=== PATIENT | male | born 1935 | race Caucasian/White ===

== ENCOUNTER 2017-10-08 22:04 | Inpatient (IN) | payer MEDICARE ==
[~2017-10-08] VITALS: Ht 180.3 cm; Wt 134.5 kg
[2017-10-08] MEDS ORDERED: DICL75ER PO (22:22)
[2017-10-08] MEDS ORDERED: TAMS.4ER PO (22:22)
[2017-10-08] MEDS ORDERED: ATOR80 PO (22:23)
[2017-10-08] MEDS ORDERED: LEVOCETIRIZINE D5 MG PO (22:23)
[2017-10-08] MEDS ORDERED: LOSA50 PO (22:23)
[2017-10-08 22:37] LABS: BASOPHILS PERCENT AUTO 0 % (0-2); EOSINOPHILS PERCENT AUTO 0 % (0-6); Hematocrit 22.6 % (37.0-53.0); Hemoglobin 7.1 g/dL (13.5-17.5); IMMATURE GRAN ABSOLUTE AUTO 0.06 K/mm3 (0.00-0.10); IMMATURE GRAN PERCENT AUTO 1 % (0-1); LYMPHOCYTES ABSOLUTE AUTO 3.09 K/mm3 (0.84-5.20); LYMPHOCYTES PERCENT AUTO 31 % (21-46); MONOCYTES ABSOLUTE AUTO 0.56 K/mm3 (0.16-1.47); MONOCYTES PERCENT AUTO 6 % (4-13); Mean Corpuscular HGB Conc 31.4 g/dL (31.5-36.5); Mean Corpuscular Volume 105 fL (80-100); Mean Platelet Volume 10.6 fL (9.1-12.4); NEUTROPHILS ABSOLUTE AUTO 6.29 K/mm3 (1.96-9.15); NEUTROPHILS PERCENT AUTO 63 % (41-73); Platelet Count 155 K/mm3 (150-400); RDW Coefficient Variation 13.2 % (11.7-14.2); RDW Standard Deviation 49.9 fL (35.1-46.3); Red Blood Cell Count 2.15 M/mm3 (4.30-5.90)
[2017-10-08 22:45] LABS: Calcium, Ionized (POC) 1.21 mmol/L (1.10-1.46); Chloride (POC) 108 mmol/L (98-108); Creatinine (POC) 1.6 mg/dL (0.8-1.3); Glucose (ISTAT POC) 216 mg/dL (70-99); Hemoglobin (POC) 7.1 g/dL (13.5-17.5); Potassium (POC) 5.5 mmol/L (3.5-5.5); Sodium (POC) 140 mmol/L (135-148); Total CO2 (POC) 22 mmol/L (21-32)
[2017-10-08 22:51] LABS: Albumin, Blood 2.5 g/dL (3.4-5.0); Albumin/Globulin Ratio 0.9 (0.8-1.8); Bilirubin, Total 0.5 mg/dL (0.1-1.0); Bun/Creatinine Ratio 40.2 (12.0-20.0); Calcium, Blood 8.4 mg/dL (8.5-10.1); Creatinine, Blood 1.64 mg/dL (0.60-1.20); Globulin, Blood 2.7 g/dL (2.2-4.0); Potassium, Blood 5.2 mmol/L (3.5-5.5); Total Protein, Blood 5.2 g/dL (6.4-8.2)
[2017-10-08 22:53] LABS: International Normalized Ratio 1.23; Prothrombin Time Results 12.5 Sec (9.7-11.5)
[2017-10-09 06:23] LABS: Hematocrit 24.1 % (37.0-53.0); Hemoglobin 7.9 g/dL (13.5-17.5); Mean Corpuscular HGB 32.2 pg (26.0-34.0); Mean Corpuscular HGB Conc 32.8 g/dL (31.5-36.5); Mean Platelet Volume 10.2 fL (9.1-12.4); Platelet Count 132 K/mm3 (150-400); RDW Coefficient Variation 14.5 % (11.7-14.2); RDW Standard Deviation 52.3 fL (35.1-46.3); Red Blood Cell Count 2.45 M/mm3 (4.30-5.90)
[2017-10-09 06:24] LABS: Mean Corpuscular Volume 98 fL (80-100)
[2017-10-09 07:07] LABS: Albumin, Blood 2.5 g/dL (3.4-5.0); Bilirubin, Total 0.5 mg/dL (0.1-1.0); Calcium, Blood 8.1 mg/dL (8.5-10.1); Globulin, Blood 2.6 g/dL (2.2-4.0); Total Protein, Blood 5.1 g/dL (6.4-8.2)
[2017-10-09 07:09] LABS: Potassium, Blood 6.6 mmol/L (3.5-5.5)
[2017-10-09 10:01] LABS: Hematocrit 21.3 % (37.0-53.0); Hemoglobin 6.9 g/dL (13.5-17.5)
[2017-10-09 12:29] LABS: Calcium, Blood 7.8 mg/dL (8.5-10.1); Creatinine, Blood 2.25 mg/dL (0.60-1.20); Potassium, Blood 5.7 mmol/L (3.5-5.5)
[2017-10-09 21:38] LABS: Hematocrit 26.1 % (37.0-53.0); Hemoglobin 8.7 g/dL (13.5-17.5)
[2017-10-10 04:46] LABS: BASOPHILS ABSOLUTE AUTO 0.01 K/mm3 (0.00-0.23); BASOPHILS PERCENT AUTO 0 % (0-2); EOSINOPHILS PERCENT AUTO 0 % (0-6); Hematocrit 25.7 % (37.0-53.0); Hemoglobin 8.4 g/dL (13.5-17.5); IMMATURE GRAN ABSOLUTE AUTO 0.11 K/mm3 (0.00-0.10); IMMATURE GRAN PERCENT AUTO 1 % (0-1); LYMPHOCYTES ABSOLUTE AUTO 3.22 K/mm3 (0.84-5.20); LYMPHOCYTES PERCENT AUTO 29 % (21-46); MONOCYTES ABSOLUTE AUTO 0.84 K/mm3 (0.16-1.47); MONOCYTES PERCENT AUTO 7 % (4-13); Mean Corpuscular HGB 32.2 pg (26.0-34.0); Mean Corpuscular HGB Conc 32.7 g/dL (31.5-36.5); Mean Corpuscular Volume 99 fL (80-100); Mean Platelet Volume 10.5 fL (9.1-12.4); NEUTROPHILS ABSOLUTE AUTO 7.11 K/mm3 (1.96-9.15); NEUTROPHILS PERCENT AUTO 63 % (41-73); Platelet Count 114 K/mm3 (150-400); RDW Coefficient Variation 14.7 % (11.7-14.2); RDW Standard Deviation 53.1 fL (35.1-46.3); Red Blood Cell Count 2.61 M/mm3 (4.30-5.90); White Blood Cell Count 11.29 K/mm3 (4.00-11.30)
[2017-10-10 05:11] LABS: Albumin, Blood 2.7 g/dL (3.4-5.0); Bilirubin, Total 0.4 mg/dL (0.1-1.0); Calcium, Blood 8.4 mg/dL (8.5-10.1); Creatinine, Blood 1.75 mg/dL (0.60-1.20); Globulin, Blood 2.6 g/dL (2.2-4.0); Potassium, Blood 5.1 mmol/L (3.5-5.5); Total Protein, Blood 5.3 g/dL (6.4-8.2)
[2017-10-11 03:47] LABS: BASOPHILS PERCENT AUTO 0 % (0-2); EOSINOPHILS PERCENT AUTO 0 % (0-6); Hematocrit 23.3 % (37.0-53.0); Hemoglobin 7.8 g/dL (13.5-17.5); IMMATURE GRAN ABSOLUTE AUTO 0.05 K/mm3 (0.00-0.10); IMMATURE GRAN PERCENT AUTO 1 % (0-1); LYMPHOCYTES ABSOLUTE AUTO 2.83 K/mm3 (0.84-5.20); LYMPHOCYTES PERCENT AUTO 32 % (21-46); MONOCYTES ABSOLUTE AUTO 0.75 K/mm3 (0.16-1.47); MONOCYTES PERCENT AUTO 9 % (4-13); Mean Corpuscular HGB 32.5 pg (26.0-34.0); Mean Corpuscular HGB Conc 33.5 g/dL (31.5-36.5); Mean Corpuscular Volume 97 fL (80-100); Mean Platelet Volume 10.5 fL (9.1-12.4); NEUTROPHILS ABSOLUTE AUTO 5.23 K/mm3 (1.96-9.15); NEUTROPHILS PERCENT AUTO 59 % (41-73); Platelet Count 102 K/mm3 (150-400); RDW Coefficient Variation 14.3 % (11.7-14.2); RDW Standard Deviation 50.3 fL (35.1-46.3); White Blood Cell Count 8.86 K/mm3 (4.00-11.30)
[2017-10-11 04:06] LABS: Bun/Creatinine Ratio 28.7 (12.0-20.0); Calcium, Blood 8.8 mg/dL (8.5-10.1); Creatinine, Blood 1.43 mg/dL (0.60-1.20); Potassium, Blood 4.3 mmol/L (3.5-5.5)
[2017-10-11] MEDS ORDERED: Pantoprazole So40 MG PO (09:47)
[2017-10-11] MEDS ORDERED: OXYC5 PO (09:49)
== END 2017-10-11 12:30 | disposition home or self-care (01) | DRG 377 ==
LOC: ER 22:04 → PCU 22:05
PROVIDERS: Emergency Medicine; Hospitalist; Internal Medicine; Internal Medicine Gastroenterology
PROC: 30233N1 Transfusion of Nonautologous Red Blood Cells into Peripheral Vein, Percutaneous Approach (ICD-10-PCS; principal; 2017-10-09 16:30)
DX: K26.4 Chronic or unspecified duodenal ulcer with hemorrhage (principal); R57.8 Other shock; D62 Acute posthemorrhagic anemia; N17.9 Acute kidney failure, unspecified; K92.1 Melena; K92.0 Hematemesis; E78.5 Hyperlipidemia, unspecified; E11.9 Type 2 diabetes mellitus without complications; E87.5 Hyperkalemia; K29.60 Other gastritis without bleeding; K25.9 Gastric ulcer, unspecified as acute or chronic, without hemorrhage or perforation; I95.9 Hypotension, unspecified; N18.9 Chronic kidney disease, unspecified; I12.9 Hypertensive chronic kidney disease with stage 1 through stage 4 chronic kidney disease, or unspecified chronic kidney disease
CPT/HCPCS: 36415; 36430; 70450; 80047; 80048; 80053; 82728; 82947; 83540; 83550; 83880; 84443; 85014; 85018; 85025; 85027; 85610; 86850; 86900; 86901; 86920; 93005; 93010; 96374; 96375; 96376; 99285; C9113; G0378; J1815; J1940; J2405; J3010; J7030; J7120; P9016